=== PATIENT | male | born 1960 | race Caucasian/White ===

== ENCOUNTER 2020-12-30 15:19 | Emergency (ER) | payer OTHER ==
[2020-12-30] MEDS ORDERED: ANTI-ITCH28 GM TP (16:25)
[2020-12-30] MEDS ORDERED: CEPHALEXIN500 MG PO (16:25)
[2020-12-30] MEDS ORDERED: BACTRIM DS TAB1 EACH PO (16:25)
== END 2020-12-30 17:30 | disposition home or self-care (01) ==
LOC: ER1 15:19
DX: L25.9 Unspecified contact dermatitis, unspecified cause (principal); I10 Essential (primary) hypertension; J44.9 Chronic obstructive pulmonary disease, unspecified; F17.210 Nicotine dependence, cigarettes, uncomplicated
CPT/HCPCS: 99282

== ENCOUNTER 2021-05-10 12:13 | Emergency (ER) | payer OTHER ==
[~2021-05-10 12:13] MED LIST: ANTI-ITCH28 GM TP; BACTRIM DS TAB1 EACH PO; CEPHALEXIN500 MG PO
[2021-05-10 13:39] LABS: HEMOGLOBIN 16.5 gm/dl (14.0-17.5); RED BLOOD COUNT 5.08 M/UL (4.20-5.50); WHITE BLOOD COUNT 10.5 K/UL (4.5-11.0)
[2021-05-10 14:06] LABS: BUN/CREATININE RATIO 8 (0-10)
== END 2021-05-10 17:35 | disposition home or self-care (01) ==
LOC: ER1 12:13
PROVIDERS: Physician Assistant Medical
DX: N32.9 Bladder disorder, unspecified (principal); R31.9 Hematuria, unspecified; R59.0 Localized enlarged lymph nodes; I11.9 Hypertensive heart disease without heart failure; F17.210 Nicotine dependence, cigarettes, uncomplicated; Z87.442 Personal history of urinary calculi
CPT/HCPCS: 80053; 81001; 85025; 85610; 96374; 99284

== ENCOUNTER → 2022-06-21 | Outpatient (CLI) | payer OTHER | LOC: CT 11:00 | DX: R53.83 Other fatigue (principal); R31.0 Gross hematuria | CPT/HCPCS: 36415; 82565; 84520; Q9967 ==